=== PATIENT | female | born 1965 | race Caucasian/White ===

== ENCOUNTER 2019-07-15 12:18 | Outpatient (CLI) | payer BC, SELFPAY ==
--- NOTE | ~2019-07-15 | MMUS_ITS ---
EXAMINATION: MM diag caity implant BI w xu, US breast BI complete HISTORY: Left breast mass at 1:00. TECHNIQUE: Implant displaced 3-D tomosynthesis images of both breasts were performed and synthetic 2- D images were generated. Bilateral implant views of each breast. CAD analysis was submitted and inter preted. High resolution bilateral complete breast ultrasound was performed. COMPARISON: 05/16/2006 right breast ultrasound examination BREAST PARENCHYMAL COMPOSITION: The breasts are extremely dense, which lowers the sensitivity of mamm ography. FINDINGS: MAMMOGRAPHIC FINDINGS: Status post bilateral augmentation mammoplasty. 8 mm partially calcified circumscribed mass is noted in the subareolar area of the right breast, like ly benign calcified fibroadenoma. Multiple left breast circumscribed low-density masses are noted, measuring up to 2.3 cm approximate m aximal dimension. These likely represent simple cyst. There is suggestion of a spiculated mass posteriorly in the upper left breast medial to the mid sagit mor plane at approximately 11:00 (MLO Tomosynthesis image 24/56), with some subtle granular microcalc ifications. Ultrasound correlation was obtained. Scattered bilateral benign calcifications are noted. ULTRASOUND: Left breast: At 11:00 7 cm from the nipple there is a very irregular hypoechoic spiculated approximat queenie 2 cm solid mass and prominent adjacent vessel, flow signal. There is posterior shadowing. This is highly suggestive of malignancy. Ultrasound-guided biopsy should be considered. At 12:00 there are multiple cysts including 2 contiguous larger cysts, one septated, the other with l ow intensity internal echoes, the largest approximately 2.1 cm. 9:00: Several cysts measuring up to 4.5 mm and 6 are noted. Subareolar approximately 6.9 x 11 mm simple cyst Right breast: 2:00 periareolar area: Circumscribed hypoechoic 8mm mass with mild posterior shadowing, likely corres ponding to mammographically demonstrated partially calcified probable fibroadenoma 7:00 3 cm from nipple: 7.5 x 6 x 6.8 mm sonolucency with through transmission and posterior enhanceme nt, consistent with cyst 8:00-9:00: Sonolucent approximately 7 mm rounded lesion with through transmission and posterior enhan cement. Subareolar right breast: 6.8 mm hypoechoic area IMPRESSION: 1. Left breast 11:00 7 cm from nipple: Very irregular hypoechoic spiculated at least 2 cm mass, highl y suggestive of malignancy. 2. Ultrasound-guided biopsy is recommended BI-RADS 5: Highly suggestive of malignancy. Appropriate action should be taken Reviewed, dictated and finalized at location A. IMPRESSION: 1. Left breast 11:00 7 cm from nipple: Very irregular hypoechoic spiculated at least 2 cm mass, highly suggestive of malignancy. 2. Ultrasound-guided biopsy is recommended BI-RADS 5: Highly suggestive of malignancy. Appropriate action should be taken
== END 2019-07-15 12:19 | disposition home or self-care (01) ==
LOC: ANHIMG 12:23
PROVIDERS: Visit Provider Obstetrics & Gynecology
DX: R92.8 Other abnormal and inconclusive findings on diagnostic imaging of breast (principal)
CPT/HCPCS: 76641; 77062; 77066; G0279

== ENCOUNTER 2020-10-18 00:56 | Day surgery (SDC) | payer BC, SELFPAY ==
[2020-10-10 15:14] VITALS: BMI 26.4
--- NOTE | 2020-10-18 12:17 | PM.IMHP ---
H&P: HPI History of Present Illness Date/Time: 10/18/20 12:17 55 y/o with an episode of postmenopausal bleeding. She takes anastrozole for a history of breast cancer. Ultrasound exam failed to visualize the endometrial complex very well. Endometrial sampling was not possible in the office due to cervical stenosis. She has had a LEEP conization of the cervix. I have recommended a hysteroscopy with D&C to evaluate the endometrium. Chief Complaint: Bleeding Review of Systems Review of Systems: All systems reviewed & are unremarkable except as noted in HPI and below PMFSH Past Medical History Medical History History of acoustic neuroma History of breast cancer Surgical History Surgical History History of abdominoplasty History of bilateral mastectomy Family History Family History Other Diabetes mellitus Social History Social History Smoking status: Never smoker Alcohol intake: current Drinks per week: 3 Living arrangements: alone Meds Home Medications and Allergies Home Medications Medication Instructions Recorded Confirmed Type anastrozole 1 mg PO DAILY 10/10/20 10/10/20 History meloxicam 15 mg PO DAILY 10/10/20 10/10/20 History valacyclovir 500 mg PO DAILY 10/10/20 10/10/20 History zoledronic acid [Zometa] mg IV 10/10/20 History Allergies Allergy/AdvReac Type Severity Reaction Status Date / Time No Known Allergies Allergy Mild Unverified 02/20/04 13:54 Exam Const: Orientation/consciousness: patient oriented x3 Other: Well-developed, well-nourished female in no acute distress. Neck: Thyroid: thyroid normal Lymphatic: no lymphadenopathy noted (in neck, axilla or inguinal nodes) Resp: Effort & Inspection: normal respiratory effort Auscultation: clear to auscultation bilaterally Cardio: Rate: regular rate Rhythm: regular rhythm Heart sounds: S1 normal heart sound present and S2 normal heart sound present GI: Other: ABD: Soft, nontender, nondistended. No guarding or rebound tenderness. No hepatosplenomegaly. : General: Yes no CVA tenderness Other: External genitalia: normal female hair distribution, without lesion. Urethral meatus: no lesion, non prolapsed. Bladder: no mass, nontender Vagina: well-estrogenized, without lesion or discharge. No cystocele or rectocele. Cervix: no lesion or discharge. Uterus: small, anteverted, freely mobile, nontender Adnexa: no mass or tenderness. Anus/perineum: no lesions, nontender Back/Spine/Pelvis: Back: no CVA tenderness Skin: General skin exam: normal color and no rashes or lesions noted Neuro: General: patient oriented x3 Extrem: Other: Extremities: nontender with no edema Psych: Mental Status: mental status grossly normal Affect: normal affect Assessment and Plan Assessment and plan (1) Postmenopausal bleeding: Code(s): N95.0 - Postmenopausal bleeding Status: Acute Assessment and Plan: Offered hysteroscopy with dilation and sharp curettage, as above. She understands risks of surgery to include risks of anesthesia, risks of pain, infection, bleeding, blood products, thromboembolic phenomena and damage to adjacent structures such as bowel, bladder, ureters, blood vessels and nerves. She understands all these risks and elects to proceed with surgery.
[2020-10-18 12:38] VITALS: BMI 26.2
[2020-10-18] MEDS: ACETAMINOPHEN 500 MG TABLET 1000 MG PO (12:47)
[2020-10-18 13:00] VITALS: BP 118/92; PULSE 74; RESP 16; TEMP 37.2; O2SAT 100
[2020-10-18] MEDS: LACTATED RINGERS 1,000 ML 30 ML IV CONT (13:00)
--- NOTE | 2020-10-18 13:25 | WPDANESEPPF ---
Anes - Initial Pre Proc Eval Procedure: Operation Date: 10/18/20 14:00 Proposed Procedures p Hysteroscopy, Dilation and Curettage - Jose Alberto Venegas MD Date/Time: 10/18/20 13:25 Surgeon: Jose Alberto Venegas MD Pre Op Diagnosis: post menopausal bleeding Patient Data Age: 55 Gender: F Height: 1.65 m Weight: 71.5 kg Last Vital Signs Temp 37.2 C 10/18/20 13:00 Pulse 74 10/18/20 13:00 Resp 16 10/18/20 13:00 BP 118/92 H 10/18/20 13:00 Pulse Ox 100 10/18/20 13:00 Allergies Allergy/AdvReac Type Severity Reaction Status Date / Time No Known Allergies Allergy Mild Verified 10/18/20 12:27 Home Medications Medication Instructions Recorded Confirmed Type anastrozole 1 mg PO DAILY 10/10/20 10/18/20 History meloxicam 15 mg PO DAILY 10/10/20 10/18/20 History valacyclovir 500 mg PO DAILY 10/10/20 10/18/20 History zoledronic acid [Zometa] mg IV 10/10/20 History Patient hx anesthesia problems: none Family hx anesthesia problems: none PMFSH Past Medical History Medical History History of acoustic neuroma History of breast cancer Surgical History Surgical History History of abdominoplasty History of bilateral mastectomy Family History Family History Other Diabetes mellitus Social History Social History Smoking status: Never smoker Alcohol intake: current Drinks per week: 3 Living arrangements: alone Anes - Eval Final PreProcedure Day of Procedure 10/18/20 13:25 Patient weight: overweight Heart: regular rate and rhythm Lungs: clear to auscultation Airway: Mallampati scale class II Neurological: alert and oriented Last oral intake: >/= 8 hours ASA classification: II Emergent: no Anesthetic plan: proceed Anesthesia type and monitoring: general GIVS and standard monitoring Informed Consent: The patient's anesthetic plan and its attendant risks and benefits were discussed with the patient/family/POA. Questions were solicited and answers provided to the satisfaction of the patient/family/POA.
--- NOTE | 2020-10-18 13:58 | WPDHPUPDATE1 ---
History and Physical Update Update Date/Time: 10/18/20 13:58 History and Physical has been reviewed, including an updated exam of the patient. There are NO changes in the patient's condition. Risks, benefits, and alternatives have been discussed and questions answered. Patient agrees to proceed with procedure.
[2020-10-18 14:38] VITALS: BP 115/75; PULSE 77; RESP 14; O2SAT 98
--- NOTE | 2020-10-18 14:52 | W.PM.PROC2 ---
Procedure Note - Detailed Date of Procedure 10/18/20 Pre-op Diagnosis Postmenopausal bleeding Post-op Diagnosis same Procedure Performed Hysteroscopy Dilation and sharp curettage Surgeon Jose Alberto Venegas MD Anesthesia MAC and local (1% lidocaine paracervical block) Findings Unremarkable endometrial cavity Description of Procedure The patient was taken to the operating room where she was prepared and draped in the usual sterile fashion in the dorsal lithotomy position. The bladder was drained with a red rubber catheter. A sterile speculum was placed into the vagina. The anterior lip of the cervix was grasped with single-tooth tenaculum. Ten mL of 1% lidocaine was administered in a paracervical block. The cervix was then gently dilated using Hegar dilators until a 7 mm dilator could be passed. Hysteroscopy was performed using sterile saline as a distention medium. Findings are as noted above. Sharp curettage was then performed, and endometrial curettings were collected on a Telfa pad and passed off to be sent to pathology. Hemostasis was excellent. Sponge, lap, needle and instrument counts were correct. The patient was awakened and taken to the recovery room in stable condition. I was present and scrubbed through the entire procedure. Implants None Estimated Blood Loss 5 Drains No Packing No Pathology yes (endometrial curettings) Complications None Condition stable Disposition PACU
[2020-10-18 15:10] VITALS: BP 119/79; PULSE 73; RESP 14
[2020-10-18 15:40] VITALS: BP 127/76; PULSE 71; RESP 16
== END 2020-10-18 16:00 | disposition home or self-care (01) ==
PROVIDERS: PCP Internal Medicine; Visit Provider Obstetrics & Gynecology
PROC: 0U5B8ZZ Destruction of Endometrium, Via Natural or Artificial Opening Endoscopic (ICD-10-PCS; CPT 58563; principal; 2020-10-18 14:00)
DX: N95.0 Postmenopausal bleeding (principal); Z85.3 Personal history of malignant neoplasm of breast
CPT/HCPCS: 58558; 88305; A9270; J2250; J2704; J3010; J7030; J7120

== ENCOUNTER 2020-11-28 09:55 | Outpatient (CLI) | payer BC, SELFPAY ==
--- NOTE | 2020-11-28 10:40 | ECG_ITS ---
Measurements Intervals [place] Rate: 78 P: 53 MI: 153 QRS: -2 QRSD: 82 T: 17 QT: 380 QTc: 433 Interpretive Statements SINUS RHYTHM POSSIBLE LEFT ATRIAL ENLARGEMENT INCOMPLETE RIGHT BUNDLE BRANCH BLOCK LOW QRS VOLTAGE IN PRECORDIAL LEADS POOR R WAVE PROGRESSION, ANTERIOR LEADS BORDERLINE T WAVE ABNORMALITY- INFERIOR LEADS BASELINE ARTIFACT- I, II, III, AVR, AVL, AVF BORDERLINE ECG Electronically Signed On 11-28-2020 11:36:31 CDT by Cristofer Pepe D.O.
[2020-11-28 11:45] LABS: Basophils Percent Auto 0.5 % (0.2-1.2); Eosinophils Absolute Auto 0.3 K/mm3 (0-0.3); Eosinophils Percent Auto 4.2 % (0-4.4); Hematocrit 47.5 % (37.0-47.0); Immature Granulocyte Absolute 0.02 K/mm3 (0.00-0.031); Immature Granulocyte Percent A 0.3 % (0-0.5); Lymphocytes Absolute Auto 2.11 K/mm3 (0.9-3.2); Lymphocytes Percent Auto 35.4 % (18.3-44.2); Mean Corpuscular HGB Conc 33.7 g/dl (32-36); Mean Corpuscular Hemoglobin 30.9 pg (26-34); Mean Corpuscular Volume 91.7 fl (80-100); Mean Platelet Volume 10.3 fl (7.4-10.4); Monocytes Absolute Auto 0.3 K/mm3 (0.1-0.6); Monocytes Percent Auto 5.5 % (2.6-8.5); Neutrophils Absolute Auto 3.2 K/mm3 (1.3-6.7); Neutrophils Percent Auto 54.1 % (45.5-73.1); Platelet Count Result 270 k/mm3 (150-375); Red Blood Count 5.18 M/mm3 (4.2-5.4); Red Cell Distribution Width 12.6 % (11.5-14.5)
[2020-11-28 11:55] LABS: INR 0.9
[2020-11-28 11:56] LABS: Partial Thromboplastin Time 25.6 SECONDS (22.3-36.8)
[2020-11-28 11:58] LABS: Alanine Aminotransferase 32 U/L (4-35); Albumin Level 4.9 g/dL (3.5-5.1); Alkaline Phosphatase 59 U/L (38-126); Anion Gap 11 mmol/L (8-16); Aspartate Amino Transferase 37 U/L (14-36); Bilirubin,Total 0.5 mg/dL (0.2-1.3); Blood Urea Nitrogen 20 mg/dL (7-17); Calcium 10.6 mg/dL (8.4-10.2); Carbon Dioxide 31 mmol/L (22-30); Chloride 100 mmol/L (98-107); Estimated Glomerular Filt Rate > 60; Glucose 96 mg/dL (65-110); Potassium 3.9 mmol/L (3.4-5.0); Sodium 142 mmol/L (137-145)
== END 2020-11-28 09:56 | disposition home or self-care (01) ==
LOC: ANHSURGERY 10:00
PROVIDERS: PCP Internal Medicine; Visit Provider Urology
DX: Z01.818 Encounter for other preprocedural examination (principal); N81.2 Incomplete uterovaginal prolapse
CPT/HCPCS: 36415; 80053; 85025; 85610; 85730; 86850; 86900; 86901; 87077; 87086; 87088; 93005

== ENCOUNTER 2020-12-11 00:22 | Day surgery (SDC) | payer BC, SELFPAY ==
[2020-11-28 10:23] VITALS: BP 132/92; PULSE 72; RESP 18; TEMP 37.3; O2SAT 97; BMI 27.6
--- NOTE | 2020-12-08 15:50 | PM.IMHP ---
H&P: HPI History of Present Illness Date/Time: 12/08/20 15:50 55-year-old with pelvic organ prolapse as well as stress incontinence Chief Complaint: pelvic organ prolapse, stress incontinence Review of Systems Review of Systems: All systems reviewed & are unremarkable except as noted in HPI and below PMFSH Past Medical History Medical History History of acoustic neuroma History of breast cancer Surgical History Surgical History History of abdominoplasty History of bilateral mastectomy Family History Family History Other Diabetes mellitus Social History Social History Smoking status: Never smoker Second hand tobacco smoke exposure: No Alcohol intake: current Drinks per week: 3 Substance use: never Substance use type: does not use Spiritual care concerns: No Meds Home Medications and Allergies Home Medications Medication Instructions Recorded Confirmed Type anastrozole 1 mg PO DAILY 10/10/20 11/28/20 History meloxicam 15 mg PO DAILY 10/10/20 11/28/20 History valacyclovir 500 mg PO DAILY 10/10/20 11/28/20 History zoledronic acid [Zometa] 4 mg IV Q6M 10/10/20 11/28/20 History calcium 600 mg PO DAILY 11/28/20 11/28/20 History cholecalciferol (vitamin D3) 50 mcg PO DAILY 11/28/20 11/28/20 History Allergies Allergy/AdvReac Type Severity Reaction Status Date / Time No Known Allergies Allergy Mild Verified 11/28/20 10:16 Exam Const: General: cooperative and healthy appearing HENMT: Head: normal to inspection Eyes: General: appearance normal, both eyes and all related structures Neck: Neck: normal visual inspection Resp: Effort & Inspection: normal respiratory effort and able to speak in complete sentences GI: Inspection: normal to inspection : Bimanual exam- vagina & uterus: Uterus displaced (0) Bimanual Exam- Adnexa, other: cystocele (+3) Back/Spine/Pelvis: Back: no CVA tenderness Skin: General skin exam: normal color and no rashes or lesions noted Neuro: General: patient oriented x3 Extrem: General: normal to inspection and full ROM Psych: Appearance: grossly normal Assessment and Plan Assessment and plan (1) Uterine prolapse: Code(s): N81.4 - Uterovaginal prolapse, unspecified Status: Acute Assessment and Plan: robotic sacral colpopexy (2) SAWYER (stress urinary incontinence, female): Code(s): N39.3 - Stress incontinence (female) (male) Status: Acute Assessment and Plan: urethral sling
[2020-12-11] VITALS (10 sets, daily range): BP systolic 90–126; BP diastolic 59–82; PULSE 70–100; RESP 12–18; TEMP 36.2–36.9; O2SAT 93–100
[2020-12-11] MEDS: ACETAMINOPHEN 500 MG TABLET 1000 MG PO (06:39)
[2020-12-11] MEDS: KETOROLAC 15 MG/ML VIAL (*BKC) IV PUSH (06:40)
--- NOTE | 2020-12-11 06:56 | P.PNAN_ITS ---
Anes - Initial Pre Proc Eval Procedure: Operation Date: 12/11/20 07:30 Proposed Procedures p Robotic Sacrocolpopexy - Fox Henderson MD s Urethral Sling - Fox Henderson MD s Robotic Assisted Supracervical Hysterectomy With Bilateral Salpingo- Oophorectomy - Jose Alberto Venegas MD Date/Time: 12/11/20 06:56 Surgeon: Fox Henderson MD Pre Op Diagnosis: incomplete uterovaginal prolapse, stress incont Patient Data Age: 55 Gender: F Height: 1.65 m Weight: 75 kg Last Vital Signs Temp 37.3 C 11/28/20 10:23 Pulse 72 11/28/20 10:23 Resp 18 11/28/20 10:23 BP 132/92 H 11/28/20 10:23 Pulse Ox 97 11/28/20 10:23 Allergies Allergy/AdvReac Type Severity Reaction Status Date / Time No Known Allergies Allergy Mild Verified 12/11/20 06:26 Home Medications Medication Instructions Recorded Confirmed Type anastrozole 1 mg PO DAILY 10/10/20 12/11/20 History meloxicam 15 mg PO DAILY 10/10/20 12/11/20 History valacyclovir 500 mg PO DAILY 10/10/20 12/11/20 History zoledronic acid [Zometa] 4 mg IV Q6M 10/10/20 12/11/20 History calcium 600 mg PO DAILY 11/28/20 12/11/20 History cholecalciferol (vitamin D3) 50 mcg PO DAILY 11/28/20 12/11/20 History Patient hx anesthesia problems: none Family hx anesthesia problems: none Results Review: All pre-operative results and documents have been reviewed as part of the pre-operative evaluation. FOR[facility]LY [facility], [facility] Past Medical History Medical History History of acoustic neuroma History of breast cancer Surgical History Surgical History History of abdominoplasty History of bilateral mastectomy Family History Family History Other Diabetes mellitus Social History Social History Smoking status: Never smoker Second hand tobacco smoke exposure: No Alcohol intake: current Drinks per week: 3 Substance use: never Substance use type: does not use Living arrangements: alone Spiritual care concerns: No Anes - Eval Final PreProcedure Day of Procedure 12/11/20 06:56 Patient weight: overweight Heart: regular rate and rhythm Lungs: clear to auscultation Airway: Mallampati scale class 1 Neurological: alert and oriented Last oral intake: >/= 8 hours ASA classification: II Emergent: no Anesthetic plan: proceed Anesthesia type and monitoring: general ETT and standard monitoring Results Review: All pre-operative results and documents have been reviewed as part of the pre-operative evaluation. Informed Consent: The patient's anesthetic plan and its attendant risks and benefits were discussed with the patient/family/POA. Questions were solicited a nd answers provided to the satisfaction of the patient/family/POA.
[2020-12-11] MEDS: LACTATED RINGERS 1,000 ML 30 ML IV CONT ×2 (07:19→10:23)
--- NOTE | 2020-12-11 07:20 | WPDHPUPDATE1 ---
History and Physical Update Update Date/Time: 12/11/20 07:20 History and Physical has been reviewed, including an updated exam of the patient. There are NO changes in the patient's condition. Risks, benefits, and alternatives have been discussed and questions answered. Patient agrees to proceed with procedure.
--- NOTE | 2020-12-11 07:48 | PM.IMHP ---
H&P: HPI History of Present Illness Date/Time: 12/11/20 07:48 55 y/o with symptomatic pelvic organ prolapse. She has seen Dr. Henderson and is scheduled for sacral colpopexy. Had postmenopausal vaginal bleeding leading to a D&C. No bleeding subsequently. Chief Complaint: Prolapse Review of Systems Review of Systems: All systems reviewed & are unremarkable except as noted in HPI and below PMFSH Past Medical History Medical History History of acoustic neuroma History of breast cancer Surgical History Surgical History History of abdominoplasty History of bilateral mastectomy Family History Family History Other Diabetes mellitus Social History Social History Smoking status: Never smoker Second hand tobacco smoke exposure: No Alcohol intake: current Drinks per week: 3 Substance use: never Substance use type: does not use Living arrangements: alone Spiritual care concerns: No Meds Home Medications and Allergies Home Medications Medication Instructions Recorded Confirmed Type anastrozole 1 mg PO DAILY 10/10/20 12/11/20 History meloxicam 15 mg PO DAILY 10/10/20 12/11/20 History valacyclovir 500 mg PO DAILY 10/10/20 12/11/20 History zoledronic acid [Zometa] 4 mg IV Q6M 10/10/20 12/11/20 History calcium 600 mg PO DAILY 11/28/20 12/11/20 History cholecalciferol (vitamin D3) 50 mcg PO DAILY 11/28/20 12/11/20 History Allergies Allergy/AdvReac Type Severity Reaction Status Date / Time No Known Allergies Allergy Mild Verified 12/11/20 06:26 Vital Signs Vital Signs - 24 hr 12/11/20 07:22 Temperature 36.3 C L Pulse Rate 79 Respiratory Rate 16 Blood Pressure 126/82 Pulse Oximetry 97 Exam Const: Orientation/consciousness: patient oriented x3 Other: Well-developed, well-nourished female in no acute distress. Neck: Thyroid: thyroid normal Lymphatic: no lymphadenopathy noted (in neck, axilla or inguinal nodes) Resp: Effort & Inspection: normal respiratory effort Auscultation: clear to auscultation bilaterally Cardio: Rate: regular rate Rhythm: regular rhythm Heart sounds: S1 normal heart sound present and S2 normal heart sound present GI: Other: ABD: Soft, nontender, nondistended. No guarding or rebound tenderness. No hepatosplenomegaly. : General: Yes no CVA tenderness Other: Deferred to OR. Back/Spine/Pelvis: Back: no CVA tenderness Skin: General skin exam: normal color and no rashes or lesions noted Neuro: General: patient oriented x3 Extrem: Other: Extremities: nontender with no edema Psych: Mental Status: mental status grossly normal Affect: normal affect Assessment and Plan Assessment and plan (1) Uterine prolapse: Code(s): N81.4 - Uterovaginal prolapse, unspecified Status: Acute Assessment and Plan: A: Symptomatic pelvic organ prolapse. P: She desires surgical management of her problem. I have offered her a robotic assisted total vaginal hysterectomy with bilateral salpingo-oophorectomy, followed by robotic sacral colpopexy with Dr. Henderson. She understands risks of surgery to include risks of anesthesia, risks of pain, infection, bleeding, blood products, thromboembolic phenomena and damage to adjacent structures such as bowel, bladder, ureters, blood vessels and nerves. She understands all these risks and elects to proceed with surgery.
[2020-12-11] MEDS: metroNIDAZOLE 500 MG/ISO 100ML 500 MG/100 ML BAG 100 MG IVPB ×3 (07:52→23:58)
--- NOTE | 2020-12-11 07:54 | WPDHPUPDATE1 ---
History and Physical Update Update Date/Time: 12/11/20 07:54 History and Physical has been reviewed, including an updated exam of the patient. There are NO changes in the patient's condition. Risks, benefits, and alternatives have been discussed and questions answered. Patient agrees to proceed with procedure.
[2020-12-11] MEDS: ceFAZolin 2 GM/D5W 50 ML 2 GM/50 ML BAG IVPB (08:05)
--- NOTE | 2020-12-11 08:55 | W.PM.PROC2 ---
Procedure Note - Detailed Date of Procedure 12/11/20 Pre-op Diagnosis Symptomatic pelvic organ prolapse Post-op Diagnosis same Procedure Performed Robotic assisted supracervical hysterectomy with bilateral salpingooophorectomy Surgeon Jose Alberto Venegas MD Anesthesia general Findings Normal-appearing uterus and ovaries. Description of Procedure The patient was taken to the operating room where general endotracheal anesthesia was administered. She was prepared and draped in the usual sterile fashion in the dorsal lithotomy position. The bladder was drained with Hall catheter. Ports were placed. She was placed in Trendelenburg position and the patient cart was docked. I assumed the console. The ureters were visualized bilaterally. The round ligament on the right was divided. The infundibulopelvic ligament was divided. The broad ligament was divided, skeletonizing the uterine artery on the right. The bladder was reflected away. The left side was similarly dissected. The uterus was amputated from the cervix. At this point, Dr. Henderson began his portion of the procedure which will be described in a separate note. I was present and scrubbed through this portion of the procedure. Estimated Blood Loss 10 Drains Yes (hall) Packing No Pathology yes (Uterus, bilateral tubes and ovaries.) Complications None Condition stable Disposition PACU
[2020-12-11] MEDS: BUPIVACAINE/EPINEPHRINE 0.25% 50 ML VIAL 20 ML INFILTRATE (09:53)
--- NOTE | 2020-12-11 10:11 | W.PM.PROC2 ---
Procedure Note - Detailed Date of Procedure 12/11/20 Pre-op Diagnosis incomplete uterovaginal prolapse, stress incont Post-op Diagnosis same Procedure Performed Robotic assisted laparoscopic sacral colpopexy Urethral sling Cystoscopy Surgeon Fox Henderson MD Anesthesia general Indications Distal with uterine prolapse as well as stress incontinence. She desires surgical correction. She is here for the above. She understands risks of bleeding, infection, diskitis, damage to surrounding organs, bowel injury, bowel obstruction, mesh related complications including exposure and extrusion, postoperative voiding dysfunction including incontinence and retention, need for ancillary procedures, dyspareunia, recurrence of prolapse, and other perioperative intraoperative postoperative complications. She agrees to proceed. Findings See below Description of Procedure She was correctly identified. Informed consent obtained. She from the operating room. She was given general anesthesia. She was given appropriate perioperative antibiotics. She was placed a low lithotomy position. Pressure points were padded. A time-out performed. I marked out the skin 3 fingerbreadths cephalad to the umbilicus. I anesthetized the skin. I incised the skin. I dissected down to the fascia. I grasped the fascia with Alessandro clamps. I entered the fascia sharply in a [place] type technique. I placed sutures for later fascial closure. I placed a midline trocar. I examined the abdomen. There is no sign of any injury. Under direct vision I placed 2 additional trocars in the right upper quadrant and 2 additional trocars the left upper quadrant. She was placed in steep Trendelenburg. The robot was docked. Her aviation technician completed their portion of the procedure. Please see that operative report for details. I then sat at the console. The Sizer in the vagina created plane on the anterior and posterior vaginal wall. I took great care not to injure the vagina, bladder, or rectum. I introduced the mesh into the abdomen. I sewed the anterior leaflet of mesh on the anterior vaginal wall. I sewed the posterior leaflet of mesh on the posterior vaginal wall. This was done with several sutures of 2 0 [place]-Nickolas. I reflected the colon laterally. I opened the posterior peritoneum over the sacral promontory. I carried this into the cul-de-sac. I freed up the edges for later retroperitonealization. I located the anterior longitudinal ligament the sacrum. I cleaned off all fatty tissues. I then tensioned my mesh appropriately. I did a vaginal exam the bedside. I assured prolapse reduction without undue tension. I then sewed the proximal leaflet of mesh onto the anterior longitudinal ligament of the sacrum with several sutures of 2 0 [place]-Nickolas. I then used a 2 0 Monocryl to completely and meticulously retroperitonealized all mesh. I allowed the colon to go back to its normal anatomic location. There is no sign of any impingement. The specimen was then removed. All ports removed. Fascia was tied down. Skin was closed with Monocryl and surgical glue. She was repositioned and prepped for urethral sling. I marked out the inner thigh incisions. I anesthetized the skin and made the incisions. I then anesthetized the anterior vaginal wall at the mid urethra. I made a 1 cm incision. I dissected out laterally taking great care not to injure the refilled vaginal wall. I passed the helical trocars. I did this 1st on the left and then on the right. This was done from the thigh incision towards the vaginal incision. Sling was connected to the trocars and brought out the thigh incision. I tensioned the sling appropriately. I cut and the plastic sheaths. I closed the incision with 2 0 Vicryl. I then performed cystoscopy. There was no tumors or surgical artifact. Both ureters were seen to excrete clear yellow urine. There is no surgical artifact in the bladder or urethra. I cut
--- NOTE | 2020-12-11 11:39 | PC.NURSE ---
This patient, Zulma Hickman, was received from PACU on 12/11/20 at 1139. Patient/family oriented to unit policies and routines
[2020-12-11] MEDS: MORPHINE SULFATE (*CRX) 2 MG/ML INJ IV PUSH ×2 (13:00→15:03)
[2020-12-11] MEDS: KCL 20 MEQ/D5/0.45% SOD CHL 1,000 ML 100 ML IV CONT ×2 (13:01→21:18)
[2020-12-11] MEDS: KETOROLAC 30 MG/ML VIAL (*BKC) IM (15:04)
[2020-12-11] MEDS: ONDANSETRON INJ 4 MG/2 ML VIAL IV PUSH (15:04)
[2020-12-11] MEDS: HYDROcodone/acetaminophen (*CRX) 5-325 MG TABLET 1 TAB PO (21:07)
[2020-12-11] MEDS: ENOXAPARIN 30 MG/0.3 ML SYRINGE SUB-Q (21:08)
[2020-12-12] VITALS: BP 111/72; PULSE 90; RESP 16; TEMP 37; O2SAT 96
[2020-12-12] MEDS: HYDROcodone/acetaminophen (*CRX) 5-325 MG TABLET 1 TAB PO ×2 (01:36→11:57)
[2020-12-12 05:30] VITALS: BP 109/73; PULSE 80; RESP 16; TEMP 37.1; O2SAT 97
[2020-12-12] MEDS: ACETAMINOPHEN 325 MG TABLET 650 MG PO (05:33)
--- NOTE | 2020-12-12 08:08 | WPDANESPN ---
Anes - Prog Note Post-Op Date/Time: 12/12/20 08:08 Vital Signs: Last Vital Signs Temp 98.8 F 12/12/20 05:30 Pulse 80 12/12/20 05:30 Resp 16 12/12/20 05:30 BP 109/73 12/12/20 05:30 Pulse Ox 97 12/12/20 05:30 Pain Score (VAS): 0. gas pain. I/O: Intake & Output 12/11/20 12/12/20 12/12/20 23:59 07:59 15:59 Intake Total 1840 300 Output Total 1000 1825 Balance 840 -1525 Post-procedural complaints: none Patient Feedback: Patient satisfied with anesthetic care.
[2020-12-12 08:30] VITALS: BP 122/81; PULSE 73; RESP 20; TEMP 36.9; O2SAT 95
[2020-12-12] MEDS: valACYclovir HCL 500 MG TABLET PO (08:52)
[2020-12-12] MEDS: DOCUSATE SODIUM 100 MG CAPSULE PO (08:52)
[2020-12-12] MEDS: metroNIDAZOLE 500 MG/ISO 100ML 500 MG/100 ML BAG 100 MG IVPB (08:53)
--- NOTE | 2020-12-12 09:01 | PM.GYNPNOP ---
[employer] - A/P Postoperative Procedures: Procedures Operation Date: 12/11/20 07:30 Actual Procedure Side Surgeon p Robotic Sacrocolpopexy Fox Henderson MD s Urethral Sling Not Applicable Fox Henderson MD s Robotic Assisted Supracervical Hysterectomy With Bilateral Salpingo-Oophorectomy Bilateral Jose Alberto Venegas MD A: POD#1, doing well. P: Home to f/u 2 weeks with me. F/u with Dr. Henderson per his instructions. Time Spent With Patient Time with patient: less than 15 minutes [employer]- PN:Subj Post-Op Subjective Date/time seen: 12/12/20 09:01 Interval history: Pain OK. Tolerating diet. Voiding. Would like to go home. Exam Narrative: AVSS I/O OK ABD soft, nontender. Incisions c/d/i. EXT nontender [employer] - PN: Obj Data Vital Signs Vital Signs: Vital Signs - 24 hr 12/11/20 10:23 12/11/20 10:35 12/11/20 10:50 Temperature 36.2 C L Pulse Rate 73 76 75 Respiratory Rate 12 14 16 Blood Pressure 90/60 L 93/65 L 93/66 L Pulse Oximetry 95 100 100 12/11/20 11:05 12/11/20 11:20 12/11/20 11:30 Temperature Pulse Rate 73 74 70 Respiratory Rate 14 16 16 Blood Pressure 102/68 104/73 101/69 Pulse Oximetry 100 96 93 12/11/20 12:00 12/11/20 16:00 12/11/20 20:00 Temperature 36.6 C 36.6 C 36.9 C Pulse Rate 77 82 100 Respiratory Rate 18 18 18 Blood Pressure 107/66 112/72 113/59 L Pulse Oximetry 100 100 97 12/12/20 00:00 12/12/20 05:30 Temperature 37.0 C 37.1 C Pulse Rate 90 80 Respiratory Rate 16 16 Blood Pressure 111/72 109/73 Pulse Oximetry 96 97 Intake/Output Intake/Output: Intake & Output 12/09/20 12/10/20 12/11/20 12/12/20 23:59 23:59 23:59 23:59 Intake Total 2740 300 Output Total 1250 1825 Balance 1490 -1525 Meds/Results Medications: Active Medications Generic Name Dose Route Start Last Admin Trade Name Freq PRN Reason Stop Dose Admin Acetaminophen 650 mg 12/11/20 11:33 12/12/20 05:33 Acetaminophen 325 Mg Tablet PO 650 mg Q4H PRN Administration Mild Pain (1-3) or Fever Hydrocodone Bitart/Acetaminophen 1 tab 12/11/20 11:33 12/12/20 01:36 Hydrocodone/Acetaminophen (*Crx) 5-325 Mg Tablet PO 1 tab Q4H PRN Administration Pain Rated 4-5 Anastrozole 1 mg 12/12/20 09:00 Anastrozole (*Chemo) 1 Mg Tablet PO DAILY [facility] Cephalexin HCl 500 mg 12/12/20 13:00 Cephalexin 500 Mg Capsule PO QID [facility] Diphenhydramine HCl 25 mg 12/11/20 11:33 Diphenhydramine Hcl Inj 50 Mg/Ml Vial IV PUSH Q6H PRN Itching Docusate Sodium 100 mg 12/12/20 09:00 Docusate Sodium 100 Mg Capsule PO DAILY [facility] Metronidazole 500 mg in 100 mls @ 100 mls/hr 12/11/20 16:00 12/11/20 23:58 Flagyl 500 Mg/Iso Soln 100 Ml IVPB 100 mls/hr Q8H [facility] Administration Potassium Chloride/Dextrose/Sod Cl 1,000 mls @ 100 mls/hr 12/11/20 11:33 12/11/20 21:18 Kcl 20 Meq/D5/0.45% Sod Chl IV CONT 100 mls/hr .Q10H [facility] Administration Ketorolac Tromethamine 30 mg 12/11/20 14:50 12/11/20 15:04 Ketorolac 30 Mg/Ml Vial (*Bkc) IM 30 mg Q6H PRN Administration Pain Rated 4-6 Morphine Sulfate 2 mg 12/11/20 11:33 12/11/20 15:03 Morphine Sulfate (*Crx) 2 Mg/Ml Inj IV PUSH 2 mg Q2H PRN Administration Pain Rated 6 or Greater Ondansetron HCl 4 mg 12/11/20 11:33 12/11/20 15:04 Ondansetron Inj 4 Mg/2 Ml Vial IV PUSH 4 mg Q6H PRN Administration Nausea And Vomiting Valacyclovir HCl 500 mg 12/12/20 09:00 Valacyclovir Hcl 500 Mg Tablet PO DAILY [facility] Zolpidem Tartrate 5 mg 12/11/20 11:33 Zolpidem Tartrate (*Crx) 5 Mg Tablet PO HS PRN Insomnia
--- NOTE | 2020-12-12 09:02 | PM.DS ---
DS: Admitting Diagnosis Discharge Date 12/12/20 Admitting Diagnosis Pelvic organ prolapse Stress urinary incontinence DS: Discharge Diagnosis Discharge Diagnosis (1) SAWYER (stress urinary incontinence, female): Code(s): N39.3 - Stress incontinence (female) (male) Status: Acute (2) Uterine prolapse: Code(s): N81.4 - Uterovaginal prolapse, unspecified Status: Acute DS: Summary Hospital Course Hospital Course: Admitted to the hospital on the date of scheduled surgery. See op notes for details. Did well postoperatively and was able to go home on POD#1. DS: Data Data Completed and Pending Pending studies at discharge: Pending at discharge 12/11/20 08:56 Surgical [PTH] Routine Discharge Plan Discharge Patient Disposition: Home, Self-Care Discharge Instructions: No lifting >20lb, exercise for 6 weeks No tub bath or pool for 2 weeks No intercourse for 6 weeks Stand Alone Forms: General Discharge Instructions Follow-up/Referrals: Fox Henderson MD [Physician] - (6 weeks as scheduled) Jose Alberto Venegas MD [Physician] - 6 Weeks Discharge Medications: New docusate sodium [Colace] 100 mg capsule 100 mg PO BID Qty: 60 RF: 0 hydrocodone-acetaminophen 5-325 mg tablet 1 tablet PO Q4H PRN (Reason: pain) Qty: 30 RF: 0 Continued anastrozole 1 mg tablet 1 mg PO DAILY RF: 0 valacyclovir 500 mg tablet 500 mg PO DAILY RF: 0 zoledronic acid 4 mg Recon Soln 4 mg IV Q6M RF: 0 calcium 600 mg Capsule 600 mg PO DAILY RF: 0 cholecalciferol (vitamin D3) 50 mcg (2,000 unit) Tablet 50 mcg PO DAILY RF: 0 Held meloxicam 15 mg tablet 15 mg PO DAILY RF: 0 Hold Instructions: Resume on 12/14/20.
== END 2020-12-12 12:26 | disposition home or self-care (01) ==
LOC: ANHSURGERY 10:18 → ANHOB2 11:37
PROVIDERS: Obstetrics & Gynecology; PCP Internal Medicine; Visit Provider Urology
PROC: (CPT 57425; principal; 2020-12-11 07:30)
PROC: (CPT 57288; 2020-12-11 07:30)
PROC: 0UT94ZZ Resection of Uterus, Percutaneous Endoscopic Approach (ICD-10-PCS; CPT 57425; 2020-12-11 07:30)
DX: N81.2 Incomplete uterovaginal prolapse (principal); N39.3 Stress incontinence (female) (male); N80.0 Endometriosis of uterus; N73.6 Female pelvic peritoneal adhesions (postinfective); Z85.3 Personal history of malignant neoplasm of breast; Z79.811 Long term (current) use of aromatase inhibitors
CPT/HCPCS: 57288; 57425; 58542; S2900 ×2; 88307; 99199; A9270; C1771; C1781; C9290; J0690; J1170; J1650; J1885; J2250; J2270; J2405; J3010; J3480; J7030; J7120